=== PATIENT | male | born 1985 | race Two or more races ===

== ENCOUNTER 2019-08-07 06:59 | Emergency (ER) | payer SELFPAY ==
[~2019-08-07] VITALS: Ht 165.1 cm; Wt 95.3 kg
[2019-08-07] MEDS: IV NORMAL SALINE 1000ML BAG 1,000 ML IV SCH (07:23)
[2019-08-07] MEDS: ONDANSETRON PF 4 MG/2 ML VIAL. IV ONE (07:25)
[2019-08-07] MEDS: KETOROLAC 30 MG/ML VIAL. IV ONE (07:26)
--- NOTE | 2019-08-07 07:27 | PHYS DOC ---
Past Medical History Past Medical History: No Pertinent History Additional Information: 2PKDAY Alcohol Use: None Drug Use: None Adult General Chief Complaint Chief Complaint: FLANK PAIN HPI HPI Patient is a 34 year old male without medical problem who presents with complaining of abdominal and flank pain. Patient states she woke up at 0100 today with feeling of having bowel movement and tenderness started to have pain in upper abdomen and left flank as a sharp pain with nausea and one episode of vomiting. Patient complaining of urinary frequency and hesitancy. Patient rated his pain 8/10 and denies fever and chills, diarrhea and constipation, chest pain and shortness of breath. States he had the same pain a few weeks ago that resolved spontaneously. Patient denies history of kidney stones and recent dehy dration. Review of Systems Review of Systems Constitutional: Denies fever or chills [] Eyes: Denies change in visual acuity, redness, or eye pain [] HENT: Denies nasal congestion or sore throat [] Respiratory: Denies cough or shortness of breath [] Cardiovascular: No additional information not addressed in HPI [] GI: Reports abdominal pain, nausea, vomiting, denies bloody stools or diarrhea [] : Denies dysuria or hematuria [] Musculoskeletal: Denies back pain or joint pain [] Integument: Denies rash or skin lesions [] Neurologic: Denies headache, focal weakness or sensory changes [] Endocrine: Denies polyuria or polydipsia [] All other systems were reviewed and found to be within normal limits, except as documented in this note. Current Medications Current Medications Current Medications Medications (Trade) Dose Ordered Sig/[facility] Start Time Stop Time Status Last Admin Dose Admin Ketorolac Tromethamine (Toradol 30mg Vial) 30 mg 1X ONCE 08/07/19 07:15 08/07/19 07:18 DC 08/07/19 07:26 30 MG Ondansetron HCl (Zofran) 4 mg 1X ONCE 08/07/19 07:15 08/07/19 07:18 DC 08/07/19 07:25 4 MG Sodium Chloride 1,000 ml @ 1,000 mls/hr Q1H 08/07/19 07:10 08/07/19 08:09 DC 08/07/19 07:23 1,000 MLS/HR Tamsulosin HCl (Flomax) 0.4 mg 1X ONCE 08/07/19 08:45 08/07/19 08:46 DC 08/07/19 09:08 0.4 MG Allergies Allergies Allergies Coded Allergies Type Severity Reaction Last Updated Verified No Known Drug Allergies 08/07/19 No Physical Exam Physical Exam Constitutional: Well developed, well nourished, mild distress, non-toxic appearance. [] HENT: Normocephalic, atraumatic. Eyes: PERRLA, EOMI, conjunctiva normal, no discharge. [] Neck: Normal range of motion, no tenderness, supple, no stridor. [] Cardiovascular:Heart rate regular rhythm, no murmur [] Lungs & Thorax: Bilateral breath sounds clear to auscultation [] Abdomen: Bowel sounds normal, soft, no tenderness, no masses, no pulsatile masses. [] Skin: Warm, dry, no erythema, no rash. [] Back: No tenderness, no CVA tenderness. [] Extremities: No tenderness, no cyanosis, no clubbing, ROM intact, no edema. [] Neurologic: Alert and oriented X 3, no focal deficits noted. [] Psychologic: Affect normal, judgement normal, mood normal. [] Current Patient Data Vital Signs Vital Signs Date Time Temp Pulse Resp B/P (MAP) Pulse Ox O2 Delivery O2 Flow Rate FiO2 08/07/19 09:07 86 17 123/63 (83) 100 Room Air 08/07/19 07:07 98.7 98.7 Lab Values Laboratory Tests Test 08/07/19 07:20 White Blood Count 11.4 x10^3/uL (4.0-11.0) H Red Blood Count 5.37 x10^6/uL (4.30-5.70) Hemoglobin 15.9 g/dL (13.0-17.5) Hematocrit 46.7 % (39.0-53.0) Mean Corpuscular Volume 87 fL (79-100) Mean Corpuscular Hemoglobin 30 pg (25-35) Mean Corpuscular Hemoglobin Concent 34 g/dL (31-37) Red Cell Distribution Width 13.4 % (11.5-14.5) Platelet Count 276 x10^3/uL (140-400) Neutrophils (%) (Auto) 82 % (31-73) H Lymphocytes (%) (Auto) 12 % (24-48) L Monocytes (%) (Auto) 5 % (0-9) Eosinophils (%) (Auto) 0 % (0-3) Basophils (%) (Auto) 1 % (0-3) Neutrophils # (Auto) 9.4 x10^3/uL (1.8-7.7) H Lymphocytes # (Auto) 1.3 x10^3/uL (1.0-4.8) Monocytes # (Auto) 0.6 x10^3/uL (0.0-1.1) Eosinophils # (Auto) 0.0 x10^3/uL (0.0-0.7) Basophils # (Auto) 0.1 x10^3/uL (0.0-0.2) Urine Collection Type Unknown Urine Color Red Urine Clarity Cloudy Urine pH 5.5 Urine Specific [place] >=1.030 Urine Protein 100 mg/dL (NEG-TRACE) Urine Glucose (UA) Negative mg/dL (NEG) Urine Ketones (Stick) Trace mg/dL (NEG) Urine Blood Large (NEG) Urine Nitrite Negative (NEG) Urine Bilirubin Moderate (NEG) Urine Urobilinogen Dipstick 1.0 mg/dL (0.2 mg/dL) Urine Leukocyte Esterase Small (NEG) Urine RBC Tntc /HPF (0-2) Urine WBC 1-4 /HPF (0-4) Urine Squamous Epithelial Cells Few /LPF Urine Amorphous Sediment Present /HPF Urine Bacteria Moderate /HPF (0-FEW) Urine Mucus Marked /LPF Sodium Level 139 mmol/L (136-145) Potassium Level 3.9 mmol/L (3.5-5.1) Chloride Level 102 mmol/L (98-107) Carbon Dioxide Level 29 mmol/L (21-32) Anion Gap 8 (6-14) Blood Urea Nitrogen 13 mg/dL (8-26) Creatinine 1.4 mg/dL (0.7-1.3) H Estimated GFR (Cockcroft-Gault) 57.7 BUN/Creatinine Ratio 9 (6-20) Glucose Level 125 mg/dL (70-99) H Calcium Level 8.6 mg/dL (8.5-10.1) Total Bilirubin 0.9 mg/dL (0.2-1.0) Aspartate Amino Transferase (AST) 45 U/L (15-37) H Alanine Aminotransferase (ALT) 139 U/L (16-63) H Alkaline Phosphatase 88 U/L (46-116) Total Protein 7.9 g/dL (6.4-8.2) Albumin 4.2 g/dL (3.4-5.0) Albumin/Globulin Ratio 1.1 (1.0-1.7) Lipase 168 U/L (73-393) Laboratory Tests 08/07/19 07:20 Laboratory Tests 08/07/19 07:20 EKG EKG [] Radiology/Procedures Radiology/Procedures [][facility] [address] [place] [address] IMAGING REPORT Signed PATIENT: YENI CAIN: [id number] : 1985 LOCATION: ER AGE: 34 SEX: M EXAM STATUS: REG ER ORD. PHYSICIAN: JAZLYN HOFFMANN MD REASON: left flank pain PROCEDURE: CT ABDOMEN PELVIS WO CONTRAST Examination: CT of the abdomen pelvis without contrast HISTORY: History of left flank pain COMPARISON: None available Technique: Axial CT images of the abdomen pelvis are performed without contrast. Coronal and sagittal reformats were performed. Exposure: One or more of the following individualized dose reduction techniques were utilized for this examination: 1. Automated exposure control 2. Adjustment of the mA and/or kV according to patient size 3. Use of iterative reconstruction technique FINDINGS: Minimal bibasilar lung atelectasis. No evidence of free air identified in the abdomen. The evaluation of the solid organs is limited due to lack of IV contrast. The evaluation of bowel is limited due to lack of oral contrast. Diffuse decreased attenuation noted in the liver likely hepatic steatosis. The left lobe of the liver , there is a 1.6 cm hyperdensity could be fatty sparing or hyperdense lesion. The visualized spleen, adrenals grossly appears unremarkable. The gallbladder is mildly distended. The stomach is mildly distended. The visualized pancreas grossly appears unremarkable. Small bowel is nondilated. Feces and gas noted in the colon. Mild left-sided hydronephrosis and hydroureter identified with minimal fat stranding identified about the left ureter. There is a 3 mm calculus identified in the left uterovesical junction. Urinary bladder is minimally distended. The caliber of the aorta grossly appears unremarkable No evidence of lytic bony destructive lesion. IMPRESSION: 1. 3 mm calculus left uterovesical junction causing mild left-sided hydronephrosis and hydroureter. 2. Hepatic steatosis. There is a 1.6 cm hyperdensity identified in the left lobe of liver could be focal fatty sparing or hyperdense lesion. Follow-up nonemergent MRI can be considered. Electronically signed by: Jonah Begum MD (08/07/2019 8:11 AM) [id number] DICTATED and SIGNED BY: JONAH BEGUM MD DATE: 08/07/19 0811 Course & Med Decision Making Course & Med Decision Making Pertinent Labs and Imaging studies reviewed. (See chart for details) Evaluation of patient in ER showed 34-year-old male patient with complaining of left flank pain. Patient had unremarkable physical exam. CT of abdomen and pelvis showed 3 mm stone in left side. Patient felt better with treatment in ER. Patient was advised to follow-up with urologist and increase fluid intake and strain his urine. I've spoken with the patient and/or caregivers. I've explained the patient's condition, diagnosis and treatment plan based on information available to me at this time. I've answered the patient's and/or caregivers questions and addressed any concerns. The patient and/or caregivers have a good understanding the patient's diagnosis, condition and treatment plan as can be expected at this point. Vital signs have been stabilized. The patient's condition is stable for discharge from the emergency department. The patient will pursue further outpatient evaluation with her primary care provider or other designated consulting physician as outlined in the discharge instructions. Patient and/or caregivers are agreeable to this plan of care and follow-up instructions have been explained in detail. The patient and/or caregivers have received these instructions in written format and expressed understanding of these discharge instructions. The patient and her caregivers are aware that if any significant change in condition or worsening of symptoms should prompt him to immediately return to this of the closest emergency department. If an emergent department is not readily available I would encourage him to call 911. Thomas Disclaimer Dragon Disclaimer This electronic medical record was generated, in whole or in part, using a voice recognition dictation system. Departure Departure Impression: Primary Impression: Renal colic on left side Additional Impressions: Ureterolithiasis Hydronephrosis Renal insufficiency Disposition: HOME, SELF-CARE (at 0839) Condition: IMPROVED Referrals: NO PCP (PCP) Patient Instructions: Dehydration, Adult, Diet for Kidney Stones, Kidney Stones Additional Instructions: Follow-up with [facility] urologist for your insurance preference urologist Drink plenty of liquids Follow-up with your primary care physician in 3-5 days Return to ER if not getting better Strain all of your urine Scripts Ondansetron Hcl (ZOFRAN) 4 Mg Tablet 1 TAB PO PRN Q6-8HRS for nausea, #12 TAB Prov: JAZLYN HOFFMANN MD 08/07/19 Hydrocodone/Apap 5-325 (NORCO 5-325 TABLET) 1 Each Tablet 1 TAB PO PRN Q6HRS PRN for PAIN, #10 TAB 0 Refills Prov: JAZLYN HOFFMANN MD 08/07/19 Tamsulosin Hcl (FLOMAX) 0.4 Mg Cap.er.24h 1 CAP PO DAILY, #14 CAP 0 Refills Prov: JAZLYN HOFFMANN MD 08/07/19 Problem Qualifiers Additional Impressions: Hydronephrosis Hydronephrosis type: unspecified Qualified Codes: N13.30 - Unspecified hydronephrosis JAZLYN HOFFMANN MD Aug 07, 2019 07:27
[2019-08-07 07:31] LABS: BASO # 0.1 x10^3/uL (0.0-0.2); BASO % 1 % (0-3); EOS % 0 % (0-3); HEMATOCRIT 46.7 % (39.0-53.0); HEMOGLOBIN 15.9 g/dL (13.0-17.5); LYMPH # 1.3 x10^3/uL (1.0-4.8); LYMPH % 12 % (24-48); MEAN CORPUSCULAR HEMOGLOBIN 30 pg (25-35); MEAN CORPUSCULAR HGB CONC 34 g/dL (31-37); MEAN CORPUSCULAR VOLUME 87 fL (79-100); MONO # 0.6 x10^3/uL (0.0-1.1); MONO % 5 % (0-9); NEUT # 9.4 x10^3/uL (1.8-7.7); NEUT % 82 % (31-73); PLATELET COUNT 276 x10^3/uL (140-400); RED BLOOD COUNT 5.37 x10^6/uL (4.30-5.70); RED CELL DISTRIBUTION WIDTH 13.4 % (11.5-14.5); WHITE BLOOD COUNT 11.4 x10^3/uL (4.0-11.0)
[2019-08-07 07:33] LABS: BILIRUBIN,URINE MODERATE (NEG); CLARITY,URINE CLOUDY; COLOR,URINE RED; NITRITE,URINE NEGATIVE (NEG); PH,URINE 5.5; PROTEIN,URINE 100 mg/dL (NEG-TRACE)
[2019-08-07 07:41] LABS: RBC,URINE TNTC /HPF (0-2); SQUAMOUS EPITHELIAL CELL,UR FEW /LPF
[2019-08-07 07:46] LABS: AMORPHOUS SEDIMENT,UR PRESENT /HPF; BACTERIA,URINE MODERATE /HPF (0-FEW)
[2019-08-07 08:12] LABS: CALCIUM 8.6 mg/dL (8.5-10.1); CREATININE 1.4 mg/dL (0.7-1.3); GFR 57.7; POTASSIUM 3.9 mmol/L (3.5-5.1)
--- NOTE | 2019-08-07 08:14 | RAD ---
Examination: CT of the abdomen pelvis without contrast HISTORY: History of left flank pain COMPARISON: None available Technique: Axial CT images of the abdomen pelvis are performed without contrast. Coronal and sagittal reformats were performed. Exposure: One or more of the following individualized dose reduction techniques were utilized for this examination: 1. Automated exposure control 2. Adjustment of the mA and/or kV according to patient size 3. Use of iterative reconstruction technique FINDINGS: Minimal bibasilar lung atelectasis. No evidence of free air identified in the abdomen. The evaluation of the solid organs is limited due to lack of IV contrast. The evaluation of bowel is limited due to lack of oral contrast. Diffuse decreased attenuation noted in the liver likely hepatic steatosis. The left lobe of the liver , there is a 1.6 cm hyperdensity could be fatty sparing or hyperdense lesion. The visualized spleen, adrenals grossly appears unremarkable. The gallbladder is mildly distended. The stomach is mildly distended. The visualized pancreas grossly appears unremarkable. Small bowel is nondilated. Feces and gas noted in the colon. Mild left-sided hydronephrosis and hydroureter identified with minimal fat stranding identified about the left ureter. There is a 3 mm calculus identified in the left uterovesical junction. Urinary bladder is minimally distended. The caliber of the aorta grossly appears unremarkable No evidence of lytic bony destructive lesion. IMPRESSION: 1. 3 mm calculus left uterovesical junction causing mild left-sided hydronephrosis and hydroureter. 2. Hepatic steatosis. There is a 1.6 cm hyperdensity identified in the left lobe of liver could be focal fatty sparing or hyperdense lesion. Follow-up nonemergent MRI can be considered. Electronically signed by: Jonah Begum MD (08/07/2019 8:11 AM) [id number]
[2019-08-07 08:18] LABS: ALBUMIN 4.2 g/dL (3.4-5.0); ALBUMIN/GLOBULIN RATIO 1.1 (1.0-1.7); TOTAL BILIRUBIN 0.9 mg/dL (0.2-1.0); TOTAL PROTEIN 7.9 g/dL (6.4-8.2)
[2019-08-07] MEDS ORDERED: TAMS0.4C97 PO (08:46)
[2019-08-07] MEDS ORDERED: HYDR-3164 PO (08:46)
[2019-08-07] MEDS ORDERED: ONDA4TAB7 PO (08:46)
[2019-08-07 09:07] VITALS: BP 123/63
[2019-08-07] MEDS: TAMSULOSIN 0.4 MG CAP.ER.24H. PO ONE (09:08)
== END 2019-08-07 09:07 | disposition home or self-care (01) ==
LOC: ER 06:59
DX: N28.9 Disorder of kidney and ureter, unspecified (principal); N13.2 Hydronephrosis with renal and ureteral calculous obstruction; R11.2 Nausea with vomiting, unspecified
CPT/HCPCS: 36415; 74176; 80053; 81001; 83690; 85025; 87086; 96361; 96374; 96375; 99285; J1885; J2405; J7030